=== PATIENT | female | born 1975 | race Caucasian/White ===

== ENCOUNTER 2021-08-23 19:06 | Emergency (ER) | payer OTHER ==
[2021-08-23 22:16] LABS: HEMOGLOBIN 14.9 gm/dl (12.3-15.3); RED BLOOD COUNT 4.73 M/UL (4.00-5.10); WHITE BLOOD COUNT 8.3 K/UL (4.5-11.0)
[2021-08-23 22:37] LABS: BUN/CREATININE RATIO 20 (0-10)
== END 2021-08-24 00:30 | disposition home or self-care (01) ==
LOC: ER1 19:06
PROVIDERS: Nurse Practitioner
DX: M54.50 Low back pain, unspecified (principal); G89.29 Other chronic pain; F17.210 Nicotine dependence, cigarettes, uncomplicated
CPT/HCPCS: 72129; 72132; 80053; 81001; 85025; 85652; 86140; 96372; 96374; 99284; J1100; J1885; Q9967

== ENCOUNTER 2021-09-14 22:57 | Emergency (ER) | payer OTHER | END 2021-09-15 00:25 | disposition home or self-care (01) | LOC: ER1 22:57 | DX: M25.551 Pain in right hip (principal) | CPT/HCPCS: 81001; 96372; 99283; J1885 ==

== ENCOUNTER → 2021-10-09 | Emergency (ER) | payer OTHER ==
[~2021-10-09] MED LIST: MEDROL4 MG PO
== END | disposition home or self-care (01) ==
LOC: ER1 10:49
DX: M54.50 Low back pain, unspecified (principal); M54.6 Pain in thoracic spine; F17.200 Nicotine dependence, unspecified, uncomplicated; Z90.710 Acquired absence of both cervix and uterus; Z85.41 Personal history of malignant neoplasm of cervix uteri
CPT/HCPCS: 96372; 99283; J1100

== ENCOUNTER 2021-10-19 23:42 | Emergency (ER) | payer OTHER ==
[2021-10-20] MEDS ORDERED: IBUPROFEN600 MG PO (02:32)
[2021-10-20] MEDS ORDERED: BENZONATATE100 MG PO (02:32)
== END 2021-10-20 02:34 | disposition home or self-care (01) ==
LOC: ER1 23:42
DX: J02.9 Acute pharyngitis, unspecified (principal); F17.210 Nicotine dependence, cigarettes, uncomplicated; Z90.710 Acquired absence of both cervix and uterus; Z20.822 Contact with and (suspected) exposure to COVID-19
CPT/HCPCS: 0240U; 87081; 87880; 99283

== ENCOUNTER 2021-10-30 18:27 | Emergency (ER) | payer OTHER ==
[~2021-10-30 18:27] MED LIST changes: +BENZONATATE100 MG PO; +IBUPROFEN600 MG PO
[2021-10-31] MEDS ORDERED: CYCLOBENZAPRINE10 MG PO (03:08)
[2021-10-31] MEDS ORDERED: MEDROL DOSEPAK 24 MG PO (03:08)
== END 2021-10-31 03:15 | disposition home or self-care (01) ==
LOC: ER1 18:27
DX: M54.50 Low back pain, unspecified (principal); G89.29 Other chronic pain; F17.210 Nicotine dependence, cigarettes, uncomplicated
CPT/HCPCS: 72131; 96372; 99283; J1100; J1885

== ENCOUNTER 2021-11-29 19:18 | Emergency (ER) | payer OTHER ==
[~2021-11-29 19:18] MED LIST changes: +CYCLOBENZAPRINE10 MG PO; +MEDROL DOSEPAK 24 MG PO
[2021-11-30] MEDS ORDERED: ZANAFLEX4 MG PO (00:57)
== END 2021-11-30 01:05 | disposition home or self-care (01) ==
LOC: ER1 19:18
DX: M62.830 Muscle spasm of back (principal); M25.551 Pain in right hip; F17.210 Nicotine dependence, cigarettes, uncomplicated
CPT/HCPCS: 96372; 99283; J1885

== ENCOUNTER → 2021-12-21 | Outpatient (CLI) | payer OTHER ==
[~2021-12-21] MED LIST changes: +ZANAFLEX4 MG PO
== END ==
LOC: MRI 13:00
DX: M96.1 Postlaminectomy syndrome, not elsewhere classified (principal); Z98.1 Arthrodesis status
CPT/HCPCS: 72158; A9577